=== PATIENT | female | born 1970 | race Caucasian/White ===

== ENCOUNTER 2022-03-07 18:52 | Outpatient (CLI) | payer BC, SELFPAY ==
[2022-03-07 20:27] LABS: Cholesterol* 221 mg/dL (90-199)
[2022-03-07 20:28] LABS: HDL Cholesterol* 79 mg/dL (>=50); LDL Cholesterol Calculated 119 mg/dL (<100); Triglycerides* 117 mg/dL (40-149)
== END 2022-03-07 18:53 | disposition home or self-care (01) ==
LOC: NFLDREF 18:54
PROVIDERS: PCP Family Medicine; Visit Provider Registered Nurse
DX: Z01.419 Encounter for gynecological examination (general) (routine) without abnormal findings (principal); R53.83 Other fatigue; N18.1 Chronic kidney disease, stage 1; Z13.6 Encounter for screening for cardiovascular disorders
CPT/HCPCS: 80061

== ENCOUNTER 2022-03-19 19:38 | Outpatient (CLI) | payer BC, SELFPAY ==
--- NOTE | 2022-03-28 09:08 | W.PM.SLEEP ---
Sleep Study Details Details Interpreting Provider: Kirk Rubin MD Date of Sleep Study: 03/19/22 Sleep Study Details: STUDY TYPE:? Home ? BMI:? 24.9 ORDERING PROVIDER:? Gautam INDICATION:? Daytime hypersomnolence ? SLEEP SUMMARY:? 262.5 minutes monitored RESPIRATORY SUMMARY:? AHI 2.5, supine AHI 5.4, left lateral 1.5, right lateral 1.5 Low oxygen 92 Snoring 11.5% PERIODIC LIMB MOVEMENTS OF SLEEP:? Not recorded CARDIAC:? Range 50-73, mean 659.5 beats per minute IMPRESSION:? The study overall is not consistent with obstructive sleep apnea however the patient has mild obstructive apnea in the supine position. Snoring was noted as well RECOMMENDATION: If significant concerned about sleep disorder then an in-lab study is indicated. The patient should avoid supine sleep.
== END 2022-03-19 19:39 | disposition home or self-care (01) ==
PROVIDERS: PCP Family Medicine; Visit Provider Otolaryngology
DX: G47.19 Other hypersomnia (principal)
CPT/HCPCS: 95806

== ENCOUNTER 2022-04-19 07:04 | Outpatient (CLI) | payer BC, SELFPAY ==
--- NOTE | 2022-04-19 07:15 | MR_ITS ---
[address] [address] Phone:?[phone] Fax:?[phone] Referring Physician Information: Gabino Gutiérrez M.D. [address] [place] [id number] Phone:?[phone] Fax:?[phone] Patient:Michael Romero D.O.B:?1970 Sex:?Female Phone:?[phone] [facility] MRN:?[id number] Exam Date:?04/19/2022 ? EXAM: MRI of the RIGHT KNEE, without contrast CLINICAL HISTORY: Right knee pain and swelling since the beginning of February 2021. Evaluate for medial meniscal tear. COMPARISONS: None available. TECHNICAL: MR sequences of the right knee: sagittals: PD, PDFS coronals: PD, STIR axials: PD, T2 FS CONTRAST: None SEDATION: None FINDINGS: Bones: No fracture, bone marrow contusion, or other suspicious bone marrow signal abnormality. 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 Retinacula: The medial and lateral retinacula are intact. Fat pads: The infrapatellar, quadriceps, and prefemoral fat pads are unremarkable. Knee joint: Effusion: Moderate right knee joint effusion. Popliteal cyst: None. Intra-articular bodies: None. Posteromedial corner: The semimembranosus and pes anserine tendons are intact. Medial compartment: Medial meniscus: A tiny focus of slight undersurface contour irregularity of the body of the medial meniscus seen only on one coronal image (coronal series 7 image 18) meets criteria for possible subtle undersurface tear but is an equivocal finding of uncertain clinical significance. Cartilage: Intact. Lateral compartment: Lateral meniscus: Intact. Cartilage: Intact. Ligaments: Anterior cruciate ligament: Intact. Posterior cruciate ligament: Intact. Medial collateral ligament: Intact. Posterior oblique ligament: Intact. Fibular collateral ligament: Intact. Posterolateral corner: The distal biceps femoris tendon, iliotibial band, popliteus tendon, popliteus muscle, popliteofibular ligament, and arcuate ligament are intact. Extensor mechanism: Patellar tendon: Intact. Quadriceps tendon: Intact. IMPRESSION: 1. 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 2. Moderate right knee joint effusion. 3. A tiny focus of slight undersurface contour irregularity of the body of the medial meniscus meets criteria for possible subtle undersurface tear but is an equivocal finding of uncertain clinical significance. This is not convincing for meniscal tear. No other evidence of medial meniscal pathology. 4. No lateral meniscal pathology or ligamentous injury of the right knee. Intact medial and lateral compartment cartilage. RCB Electronically signed on 04/19/2022 1:44:00 PM by Pierre Soliz M.D.
== END 2022-04-19 07:05 | disposition home or self-care (01) ==
LOC: MRI 07:05
PROVIDERS: PCP Family Medicine; Visit Provider Orthopaedic Surgery
DX: M25.561 Pain in right knee (principal); S83.249A Other tear of medial meniscus, current injury, unspecified knee, initial encounter; M22.41 Chondromalacia patellae, right knee; M25.461 Effusion, right knee
CPT/HCPCS: 73721

== ENCOUNTER 2022-05-15 07:54 | Outpatient (CLI) | payer BC, SELFPAY | END 2022-05-15 07:55 | disposition home or self-care (01) | LOC: OP CLINIC 07:55 | PROVIDERS: PCP Family Medicine; Visit Provider Surgery | DX: Z12.11 Encounter for screening for malignant neoplasm of colon (principal); K63.5 Polyp of colon; K57.30 Diverticulosis of large intestine without perforation or abscess without bleeding | CPT/HCPCS: 45385; 88305; J2250; J3010 ==

== ENCOUNTER 2022-05-17 07:48 | Outpatient (CLI) | payer BC, SELFPAY ==
--- NOTE | 2022-05-17 08:15 | CRLHL7_ITS ---
For Patients: As a result of the Century Cures Act, medical imaging exams and procedure reports are released immediately into your electronic medical record. You may view this report before your referring provider. If you have questions, please contact your health care provider. BILATERAL SCREENING MAMMOGRAM WITH COMPUTER-AIDED DETECTION TECHNIQUE: CC and MLO views were obtained. These mammographic images have been obtained using full-field digital technique. These mammographic images were interpreted with the benefit of computer-aided detection. COMPARISON FILM: 01/11/16, 01/15/12. FINDINGS: The breasts are extremely dense, which lowers the sensitivity of mammography. IMPRESSION: There is no radiographic evidence for malignancy. ASSESSMENT: BI-RADS Category 2: Benign RECOMMENDATION: Routine screening mammogram in 1 year. A lay language report of this examination will be provided to the patient. NELLIE BRAND M.D. Diagnostic/Breast Radiologist [email or web address] Transcribed: 05/17/2022, 1:[address]/Dictated by: Nellie Brand MD @ 05/17/2022 9:40:00 AM (Electronically Signed)
== END 2022-05-17 07:49 | disposition home or self-care (01) ==
PROVIDERS: PCP Family Medicine; Visit Provider Registered Nurse
DX: Z12.31 Encounter for screening mammogram for malignant neoplasm of breast (principal); R92.2 Inconclusive mammogram
CPT/HCPCS: 77067

== ENCOUNTER 2023-03-09 16:19 | Outpatient (CLI) | payer BC, SELFPAY | END 2023-03-09 16:20 | disposition home or self-care (01) | LOC: NFLDREF 16:20 | PROVIDERS: PCP Family Medicine; Visit Provider Registered Nurse | DX: Z01.419 Encounter for gynecological examination (general) (routine) without abnormal findings (principal); R53.83 Other fatigue; N18.1 Chronic kidney disease, stage 1 | CPT/HCPCS: 82043; 82570 ==

== ENCOUNTER 2023-03-16 07:37 | Outpatient (CLI) | payer BC, SELFPAY | END 2023-03-16 07:38 | disposition home or self-care (01) | LOC: NFLDREF 03-20 11:33 | PROVIDERS: PCP Family Medicine; Referring Provider Family Medicine; Visit Provider Registered Nurse | DX: Z13.220 Encounter for screening for lipoid disorders (principal); Z13.29 Encounter for screening for other suspected endocrine disorder; Z13.1 Encounter for screening for diabetes mellitus | CPT/HCPCS: 80061; 82947; 84443 ==

== ENCOUNTER 2023-09-07 07:28 | Outpatient (CLI) | payer BC, SELFPAY | END 2023-09-07 07:29 | disposition home or self-care (01) | PROVIDERS: PCP Family Medicine; Visit Provider Registered Nurse | DX: N18.1 Chronic kidney disease, stage 1 (principal) | CPT/HCPCS: 80069; 82043; 82570; 87086 ==

== ENCOUNTER 2023-11-07 07:18 | Outpatient (CLI) | payer BC, SELFPAY | END 2023-11-07 07:19 | disposition home or self-care (01) | LOC: NFLDREF 11-08 11:02 | PROVIDERS: PCP Family Medicine; Referring Provider Family Medicine; Visit Provider Registered Nurse | DX: N18.1 Chronic kidney disease, stage 1 (principal); R82.90 Unspecified abnormal findings in urine | CPT/HCPCS: 82043; 82570; 87086 ==

== ENCOUNTER 2024-04-11 09:16 | Outpatient (CLI) | payer BC, SELFPAY ==
[2024-04-14 17:25] LABS: HPV Source Cervix; HPV, High Risk by TMA Not Detected
== END 2024-04-11 09:17 | disposition home or self-care (01) ==
PROVIDERS: PCP Family Medicine; Visit Provider Registered Nurse
DX: Z12.4 Encounter for screening for malignant neoplasm of cervix (principal); Z13.820 Encounter for screening for osteoporosis; Z13.9 Encounter for screening, unspecified; Z11.51 Encounter for screening for human papillomavirus (HPV)
CPT/HCPCS: 80053; 82306; 83735; 87624; 87625; 88141; 88142

== ENCOUNTER 2024-05-01 08:52 | Outpatient (CLI) | payer BC, SELFPAY | END 2024-05-01 08:53 | disposition home or self-care (01) | LOC: NFLDREF 05-04 07:05 | PROVIDERS: PCP Family Medicine; Referring Provider Family Medicine; Visit Provider Registered Nurse | DX: N18.1 Chronic kidney disease, stage 1 (principal) | CPT/HCPCS: 82565; 84520 ==

== ENCOUNTER 2024-06-10 09:00 | Outpatient (RCR) | payer BC, SELFPAY | END 2024-10-08 23:59 | disposition home or self-care (01) | PROVIDERS: PCP Family Medicine; Visit Provider Family Medicine | DX: S76.311D Strain of muscle, fascia and tendon of the posterior muscle group at thigh level, right thigh, subsequent encounter (principal); Z51.89 Encounter for other specified aftercare | CPT/HCPCS: 97110; 97140; 97161 ==

== ENCOUNTER 2024-07-02 07:55 | Outpatient (CLI) | payer BC, SELFPAY ==
--- NOTE | 2024-07-02 08:15 | CRLHL7_ITS ---
For Patients: As a result of the Century Cures Act, medical imaging exams and procedure reports are released immediately into your electronic medical record. You may view this report before your referring provider. If you have questions, please contact your health care provider. INDICATION: BILATERAL SCREENING MAMMOGRAM, ASYMPOTMATIC 54 Y/O FEMALE COMPARISON: 05/17/2022, 04/19/2022, 01/11/2016 TECHNIQUE: Digital mammogram in CC and MLO projections including computer-aided detection (CAD) and tomosynthesis. BREAST COMPOSITION: The breasts are extremely dense, which lowers the sensitivity of mammography. FINDINGS: No suspicious findings. ASSESSMENT: BI-RADS 1 Negative RECOMMENDATION: Annual screening mammogram. A lay language report of this examination will be provided to the patient. Dictated by: Ketan Quevedo MD @ 07/02/2024 11:33:57 (Electronically Signed)
== END 2024-07-02 07:56 | disposition home or self-care (01) ==
LOC: MAMMO 07:56
PROVIDERS: PCP Family Medicine; Visit Provider Registered Nurse
DX: Z12.31 Encounter for screening mammogram for malignant neoplasm of breast (principal); R92.343 Mammographic extreme density, bilateral breasts
CPT/HCPCS: 77063; 77067

== ENCOUNTER 2024-11-18 08:15 | Outpatient (CLI) | payer BC, SELFPAY | END 2024-11-18 08:16 | disposition home or self-care (01) | LOC: NFLDREF 11-19 12:50 | PROVIDERS: PCP Family Medicine; Referring Provider Family Medicine; Visit Provider Internal Medicine Nephrology | DX: R80.9 Proteinuria, unspecified (principal); N18.1 Chronic kidney disease, stage 1; N05.1 Unspecified nephritic syndrome with focal and segmental glomerular lesions | CPT/HCPCS: 80069; 82043; 82570; 86140 ==

== ENCOUNTER 2024-12-24 09:10 | Outpatient (CLI) | payer BC, SELFPAY | END 2024-12-24 09:11 | disposition home or self-care (01) | LOC: NFLDREF 12-29 02:01 | PROVIDERS: PCP Family Medicine; Referring Provider Family Medicine; Visit Provider Internal Medicine Nephrology | DX: R80.9 Proteinuria, unspecified (principal) | CPT/HCPCS: 82043; 82570; 87086 ==